=== PATIENT | female | born 1975 | race Hispanic/Latino ===

== ENCOUNTER 2019-08-11 17:46 | Emergency (ER) | payer OTHER, SELFPAY ==
[2019-08-12 19:55] LABS: SARS-CoV-2 MS2 Positive; SARS-CoV-2 N Gene Negative; SARS-CoV-2 S Gene Negative; SARS-CoV-2 orf1ab Negative
== END 2019-08-11 18:50 | disposition home or self-care (01) ==
LOC: NAV ERS 17:46
DX: R51 Headache (principal); R53.83 Other fatigue; Z20.828 Contact with and (suspected) exposure to other viral communicable diseases; F17.210 Nicotine dependence, cigarettes, uncomplicated; F90.9 Attention-deficit hyperactivity disorder, unspecified type; I10 Essential (primary) hypertension; E10.9 Type 1 diabetes mellitus without complications; E78.5 Hyperlipidemia, unspecified; J30.2 Other seasonal allergic rhinitis
CPT/HCPCS: 87635; 99283; U0003

== ENCOUNTER 2020-05-04 12:43 | Emergency (ER) | payer SELFPAY ==
[2020-05-05 22:41] LABS: SARS-CoV-2 PCR by NAA Not Detected (NotDetected)
== END 2020-05-04 13:57 | disposition home or self-care (01) ==
LOC: NAV ERS 12:43
DX: B34.9 Viral infection, unspecified (principal); Z20.822 Contact with and (suspected) exposure to COVID-19; E10.9 Type 1 diabetes mellitus without complications; E78.5 Hyperlipidemia, unspecified; I10 Essential (primary) hypertension; F17.210 Nicotine dependence, cigarettes, uncomplicated; Z79.84 Long term (current) use of oral hypoglycemic drugs; Z79.899 Other long term (current) drug therapy
CPT/HCPCS: 87635; 99283; U0003; U0005

== ENCOUNTER 2023-07-26 17:07 | Outpatient (CLI) | payer BC | END 2023-07-26 17:08 | disposition home or self-care (01) | LOC: NAV RAD 17:07 | PROVIDERS: ATTEND Family Medicine | DX: M25.532 Pain in left wrist (principal); M25.522 Pain in left elbow ==